=== PATIENT | female | born 1990 | race Hispanic/Latino ===

== ENCOUNTER 2019-10-12 15:16 | Emergency (ER) | payer MEDICAID ==
[2019-10-12] MEDS ORDERED: SODIUM CHLORIDE 0.9% 1000ML 1,000 ML IV ONE (15:37)
[2019-10-12] MEDS ORDERED: METOCLOPRAMIDE 10 MG/2 ML VIAL ONE (15:37)
[2019-10-12 15:56] LABS: APPEARANCE,URINE Clear (CLEAR); BILIRUBIN,URINE Negative (NEGATIVE); COLOR,URINE Yellow (YELLOW); GLUCOSE, URINE (UA) Negative (NEGATIVE); KETONES,URINE Negative (NEGATIVE); LEUKOCYTE ESTERASE ,URINE Trace (NEGATIVE); NITRATE,URINE Negative (NEGATIVE); OCCULT BLOOD,URINE Large (NEGATIVE); PROTEIN,URINE Negative (NEGATIVE); UROBILINOGEN,URINE 0.2 mg/dL (0.2-1.0)
[2019-10-12 15:57] LABS: BASOPHILS % (AUTO) 0.3 % (0.0-5.0); HEMATOCRIT 32.2 % (36-48); LYMPHOCYTES % (AUTO) 27.3 % (21.0-51.0); MEAN CORPUSCULAR HEMOGLOBIN 20.3 pg (27.0-33.0); MEAN CORPUSCULAR HGB CONC 29.5 g/dL (32.0-36.0); NEUTROPHILS % (AUTO) 61.1 % (40.0-77.0); PLATELET COUNT (AUTO) 382 K/uL (130-400); RED BLOOD CELL COUNT(AUTO) 4.67 MIL/uL (4.00-5.50); RED CELL DISTRIBUTION WIDTH 18.1 % (11.0-15.5); WHITE BLOOD COUNT (AUTO) 6.6 K/uL (4.8-10.8)
[2019-10-12 16:00] LABS: AMPHET/METH SCREEN,URINE NEGATIVE (NEGATIVE); BARBITURATE SCREEN, URINE NEGATIVE (NEGATIVE); BENZODIAZEPINES SCREEN,URINE NEGATIVE (NEGATIVE); CANNABINOID SCREEN,URINE NEGATIVE (NEGATIVE); COCAINE SCREEN,URINE NEGATIVE (NEGATIVE); OPIATE SCREEN,URINE NEGATIVE (NEGATIVE); PHENCYCLIDINE SCREEN,URINE NEGATIVE (NEGATIVE)
[2019-10-12] MEDS ORDERED: MORPHINE SULFATE 4 MG/1ML SYG ONE (16:02)
[2019-10-12] MEDS ORDERED: FAMOTIDINE/PF 20 MG/2 ML VIAL IV ONE (16:03)
[2019-10-12 16:07] LABS: BACTERIA,URINE Few /HPF (None Seen); RBC,URINE None Seen /HPF (0-1)
[2019-10-12 16:09] LABS: CREATININE 0.8 mg/dL (0.5-1.5)
[2019-10-12 16:13] LABS: ALBUMIN 3.7 g/dL (3.5-5.0); BILIRUBIN,TOTAL 0.3 mg/dL (0.2-1.0); TOTAL PROTEIN, SERUM 8.4 g/dL (6.0-8.3)
[2019-10-12 16:33] LABS: INR 0.96 (0.85-1.15); PARTIAL THROMBOPLASTIN TIME 26.8 SEC (26.3-35.5); PROTHROMBIN TIME 10.1 SEC (9.6-11.6)
[2019-10-12] MEDS ORDERED: IOHEXOL-350 75 ML VIAL IV ONE (17:18)
[2019-10-12] MEDS ORDERED: LIDOCAINE HCL 2% VISCOUS 15 ML UDCUP ONE (18:36)
[2019-10-12] MEDS ORDERED: MAG HYDROX/AL HYDROX/SIMETH ES 30 ML SUSP UDCUP ONE (18:36)
== END 2019-10-12 19:24 | disposition home or self-care (01) ==
LOC: EDH 15:16
DX: R11.2 Nausea with vomiting, unspecified (principal); R19.7 Diarrhea, unspecified; R10.13 Epigastric pain
CPT/HCPCS: 36415; 74177; 80053; 80305; 81001; 81025; 83690; 85025; 85610; 85730; 96361; 96374; 96375; 99285; J2270; J2765; J3490; J7030; Q9967

== ENCOUNTER 2022-09-27 07:35 | Emergency (ER) | payer MEDICAID ==
[~2022-09-27] VITALS: Ht 175.3 cm; Wt 126.1 kg
[~2022-09-27 07:35] MED LIST: ACET-2079 PO; IBUP-2070 PO
[2022-09-27 07:36] VITALS: BP 123/64
[2022-09-27] MEDS ORDERED: 0.9%NACL 1000ML 1,000 ML IV ONE (09:00)
[2022-09-27] MEDS ORDERED: ONDANSETRON 4MG INJ IVP ONE (09:00)
[2022-09-27] MEDS ORDERED: KETOROLAC 30MG VIAL (30MG/ML) IVP ONE (09:00)
[2022-09-27] MEDS ORDERED: CEFTRIAXONE 1G VIAL IVP ONE (09:00)
[2022-09-27] MEDS ORDERED: ONDA4TAB10 PO (09:55)
[2022-09-27] MEDS ORDERED: IBUP-2070 PO (09:55)
[2022-09-27] MEDS ORDERED: AMOX500C2 PO (10:00)
== END 2022-09-27 10:35 | disposition home or self-care (01) ==
LOC: EDH 07:35
DX: U07.1 COVID-19 (principal); H66.91 Otitis media, unspecified, right ear; R11.2 Nausea with vomiting, unspecified; R19.7 Diarrhea, unspecified; E86.0 Dehydration; J45.909 Unspecified asthma, uncomplicated; F90.9 Attention-deficit hyperactivity disorder, unspecified type; Z90.89 Acquired absence of other organs; Z79.899 Other long term (current) drug therapy; Z88.6 Allergy status to analgesic agent
CPT/HCPCS: 99284; 96374; 96361; 96375; 87635; 87804 ×2; C9803; J7030; J0696; J2405; J1885

== ENCOUNTER 2024-03-12 21:42 | Emergency (ER) | payer MEDICAID ==
[~2024-03-12] VITALS: Ht 175.3 cm; Wt 141.5 kg
[~2024-03-12 21:42] MED LIST changes: +AMOX500C2 PO; +ONDA4TAB10 PO
[2024-03-12] MEDS ORDERED: KETOROLAC 15MG/ML VIAL (15MG/ML) IV ONE (23:00)
[2024-03-12] MEDS: KETOROLAC 30MG VIAL (30MG/ML) IVP ONE (23:06)
[2024-03-12] MEDS ORDERED: KETO10TA2 PO (23:44)
[2024-03-13 00:02] VITALS: BP 128/64; PULSE 68; RESP 16; O2SAT 98
== END 2024-03-13 00:06 | disposition home or self-care (01) ==
LOC: EDH 21:42
DX: S93.491A Sprain of other ligament of right ankle, initial encounter (principal); F41.9 Anxiety disorder, unspecified; J45.909 Unspecified asthma, uncomplicated; F32.A Depression, unspecified; Z79.899 Other long term (current) drug therapy; Z98.890 Other specified postprocedural states; Z88.5 Allergy status to narcotic agent; W01.0XXA Fall on same level from slipping, tripping and stumbling without subsequent striking against object, initial encounter; Y93.01 Activity, walking, marching and hiking; Y92.89 Other specified places as the place of occurrence of the external cause; Y99.8 Other external cause status
CPT/HCPCS: 99285; 96374; 73700; 73610; 73630; J1885